=== PATIENT | male | born 1970 | race Caucasian/White ===

== ENCOUNTER 2025-04-09 08:32 | Inpatient (IN) | payer OTHER ==
[~2025-04-09] VITALS: Ht 180.3 cm; Wt 82.1 kg
[2025-04-09 09:13] VITALS: PULSE 51; RESP 18; O2SAT 98
--- NOTE | 2025-04-09 09:13 | ED.PDOC ---
HPI Comments 54 y.o male with PMHx of Left bunch branch block and HTN, presents to the ED for a chief complaint chest pain associated with lightheadedness that started yesterday around 1700. Patient describes pain as sharp, localized to the mid center of his chest that is non radiating and is constant. Patient states pain appeared while getting out of work, assumed it was excessive gas built up and went to bed. Patient then woke up around 5am today to workout and noticed pain was still active with increased lightheadedness. He denies any SOB, nausea, vomiting, fever, chills. Chief Complaint: Chest Pain Time Seen by MD: 08:40 Reviewed Notes: Nurses Notes, Medications, Allergies Allergies: Coded Allergies: NO KNOWN ALLERGIES (Unverified , 04/09/25) Information Source: Patient Mode of Arrival: Ambulatory Severity: Moderate Timing: Days (1) Duration: Since onset Location: Substernal Radiation: No Radiation Quality: Sharp Onset: At Rest Cardiac Risk Factors: HTN PE Risk Factors: None History of: None Modifying Factors: Nothing Associated Signs and Symptoms: Other (lightheadedness ) Past Medical History PAST MEDICAL HISTORY: HTN Past Medical History (Other): LBBB Surgical History: Denies all surgeries Family History Family History: Reviewed,noncontributory to illness, No family hx of Cancer, No family hx of DM, No family hx of Heart cecy, No family hx of HTN, No family hx ofKidney cecy, No family hx of Liver cecy, No family hx of Lung cecy, No family hx of Stroke Social History Smoker: Non-Smoker Alcohol: Denies ETOH Use Drugs: Denies Drug Use Lives In: Home Constitutional: denies: chills, diaphoresis, fatigue, fever, malaise, sweats, weakness, others EENTM: denies: blurred vision, double vision, ear bleeding, ear discharge, ear drainage, ear pain, ear ringing, eye pain, eye redness, hearing loss, mouth pain, mouth swelling, nasal discharge, nose bleeding, nose congestion, nose pain, photophobia, tearing, throat pain, throat swelling, voice changes, others Respiratory: denies: cough, hemoptysis, orthopnea, SOB at rest, shortness of breath, SOB with excertion, stridor, wheezing, others Cardiovascular: reports: chest pain, lightheadedness; denies: dizzy spells, diaphoresis, Dyspnea on exertion, edema, irregular heart beat, left arm pain, palpitations, PND, syncope, others Gastrointestinal: denies: abdomen distended, abdominal pain, blood streaked bowels, constipated, diarrhea, dysphagia, difficulty swallowing, hematemesis, melena, nausea, poor appetite, poor fluid intake, rectal bleeding, rectal pain, vomiting, others Genitourinary: denies: burning, dysuria, flank pain, frequency, hematuria, incontinence, penile discharge, penile sore, pain, testicle pain, testicle swelling, urgency, others Neurological: denies: dizziness, fainting, headache, left sided numbness, left sided weakness, numbness, paresthesia, pre-existing deficit, right sided numbness, right sided weakness, seizure, speech problems, tingling, tremors, weakness, others Musculoskeletal: denies: back pain, gout, joint pain, joint swelling, muscle pain, muscle stiffness, neck pain, others Integumetry: denies: bruises, change in color, change in hair/nails, dryness, laceration, lesions, lumps, rash, wounds, others Allergic/Immunocompromised: denies: Difficulty Healing, Frequent Infections, Hives, Itching, others Hematologic/Lymphatic: denies: anemia, blood clots, easy bleeding, easy bruising, swollen glands, others Endocrine: denies: excessive hunger, excessive sweating, excessive thirst, excessive urination, flushing, intolerance to cold, intolerance to heat, unexplained weight gain, unexplained weight loss, others Psychiatric: denies: anxiety, bipolar disorder, depression, hopeless, panic disorder, schizophrenia, sleepless, suicidal, others All Other Systems: Reviewed and Negative Physical Exam General Appearance: Moderate Distress HEENT: Normal ENT Inspection, Pharynx Normal, TMs Normal Neck: Full Range of Motion, Non-Tender, Normal, Normal Inspection Respiratory: Chest Non-Tender, Lungs Clear, No Accessory Muscle Use, No Respir atory Distress, Normal Breath Sounds Cardiovascular: Bradycardia Breast Exam: Deferred Gastrointestinal: No Organomegaly, Non Tender, No Pulsatile Mass, Normal Bowel Sounds, Soft Genitalia: Deferred Pelvic: Deferred Rectal: Deferred Extremities: No calf tenderness, Normal capillary refill, Normal inspection, Normal range of motion, Non-tender, No pedal edema Musculoskeletal : Apperance: Normal Neurologic: Alert, c programmer II-XII nml as Tested, No Motor Deficits, Normal Affect, Normal Mood, No Sensory Deficits Cerebellar Function: Normal Reflexes: Normal Skin: Dry, Normal Color, Warm Peripheral Pulses: 3+ Radial (R), 3+ Radial (L) Lymphatic: No Adenopathy EKG EKG : Pulse Rate (adult): 50 Cardiac Rhythm: SB Block: LBBB Was a procedure done? Was a procedure done?: No CP Differential Dx Differential Diagnosis: A-fib, A-Flutter, Angina, Anxiety / Panic Attack, Atrial Dysrhythmia, Electrolyte Disorder Differential Diagnosis: Angina, Chest Wall Pain, Cholelithiasis, Costochondritis, Myocardial Infarction, Pericarditis X-Ray, Labs, Meds, VS Vital Signs Date Time Temp Pulse Resp B/P (MAP) Pulse Ox O2 Delivery O2 Flow Rate FiO2 04/09/25 12:58 55 17 117/72 (87) 100 04/09/25 11:32 48 04/09/25 11:00 54 18 121/72 (88) 100 04/09/25 11:00 121/72 04/09/25 09:46 45 04/09/25 09:24 131/80 04/09/25 09:13 51 18 98 Room Air* 0 21 04/09/25 09:13 98.2 51 18 131/80 (97) 97 98.2 04/09/25 09:13 50 04/09/25 08:38 97.9 56 18 142/83 100 97.9 04/09/25 08:36 50 Lab Test 04/09/25 12:12 04/09/25 10:26 04/09/25 09:46 04/09/25 09:26 Range/Units Troponin I High Sensitivity 32 34 35 </=54 ng/L Urine Color Yellow Yellow Urine Clarity Clear Clear Urine pH 6.5 5.0-9.0 Urine Specific [place] 1.021 1.001-1.035 Urine Protein Negative Negative Urine Ketones Negative Negative Urine Blood Negative Negative /uL Urine Nitrite Negative Negative Urine Bilirubin Negative Negative Urine Urobilinogen Normal Negative mg/dL Urine Leukocyte Esterase Negative Negative /uL Urine RBC <1 0 - 3 /hpf Urine Microscopic WBC 1 0-3 /HPF Urine Squamous Epithelial Cells None seen <5 /hpf Urine Bacteria None seen None Seen /hpf Urine Glucose Normal Normal mg/dL White Blood Count 8.1 4.4-10.8 10^3/uL Red Blood Count 4.93 4.5-5.90 10^6/uL Hemoglobin 15.9 13.5-17.5 g/dL Hematocrit 46.1 41.0-53.0 % Mean Corpuscular Volume 93.5 80.0-100.0 fL Mean Corpuscular Hemoglobin 32.2 H 28.0-32.0 pg Mean Corpuscular Hemoglobin Concent 34.5 32.0-36.0 g/dL Red Cell Distribution Width 13.4 11.8-14.3 % Platelet Count 197 140-450 10^3/uL Mean Platelet Volume 7.9 6.9-10.8 fL Neutrophils (%) (Auto) 64.4 37.0-80.0 % Lymphocytes (%) (Auto) 23.3 10.0-50.0 % Monocytes (%) (Auto) 10.4 0.0-12.0 % Eosinophils (%) (Auto) 1.3 0.0-7.0 % Basophils (%) (Auto) 0.6 0.0-2.0 % Neutrophils # (Auto) 5.2 1.6-8.6 10 ^3/uL Lymphocytes # (Auto) 1.9 0.4-5.4 10 ^3/uL Monocytes # (Auto) 0.8 0-1.3 10 ^3/uL Eosinophils # (Auto) 0.1 0-0.8 10 ^3/uL Basophils # (Auto) 0 0-0.2 10 ^3/uL Nucleated Red Blood Cells 0.0 % Sodium Level 142 136-145 mmol/L Potassium Level 4.8 3.5-5.1 mmol/L Chloride Level 104 98-107 mmol/L Carbon Dioxide Level 30 20-31 mmol/L Anion Gap 8 5-15 Blood Urea Nitrogen 11 9-23 mg/dL Creatinine 1.15 0.700-1.30 mg/dL Glomerular Filtration Rate Calc 76 >90 mL/min BUN/Creatinine Ratio 9.6 L 10.0-20.0 Serum Glucose 96 74-106 mg/dL Calcium Level 9.3 8.7-10.4 mg/dL Total Bilirubin 0.7 0.2-1.0 mg/dL Aspartate Amino Transferase (AST) 26 13-40 U/L Alanine Aminotransferase (ALT) 33 7-40 U/L Alkaline Phosphatase 67 46-116 U/L Total Protein 6.3 5.7-8.2 g/dL Albumin 4.0 3.2-4.8 g/dL Current Medications Medications (Trade) Dose Ordered Sig/Cedrick Route Start Time Stop Time Status Last Admin Nitroglycerin (Ntrostat Sublingual) 0.4 mg ONCE ONCE SL 04/09/25 09:15 04/09/25 09:16 DC 04/09/25 09:24 Aspirin 325 mg ONCE ONCE PO 04/09/25 09:15 04/09/25 09:16 DC 04/09/25 09:25 AP portable chest CLINICAL INDICATION: sob FINDINGS: Heart size slightly prominent with a left ventricular configuration. The aorta is tortuous. No infiltrates or effusions. IMPRESSION: 1. No acute cardiopulmonary pathology Patient alert. Complaining of chest pain. EKG does show bradycardia with left bundle branch block. Cardiac marker within normal limits. Vitals stable. Spoke with Cardiology. Was given aspirin. Was given nitro. WBC within normal limits. Hemoglobin within normal limits. Chest x-ray reviewed does not show any acute process. Explained to the patient. Continue to monitor. Time of 1ST Reevaluation: 09:09 Reevaluation 1ST: Unchanged Patient Education/Counseling: Diagnosis, Treatment, Prognosis Family Education/Counseling: No Family Present SEPSIS Sepsis Screen Date sepsis recognized/suspect: Apr 09, 2025 Time Sepsis recognized/suspect: 837 Recent Procedure: No On Antibiotic Therapy: No Respiratory Rate >20: No Heart Rate >90: No Temp<36 C (96.8 F) or >38.3 C: No SBP <90 or MAP <65 mmHG: No New Acute Mental Status Change: No Is the patient on CPAP, BIPAP,: No Physician Orders Electrocardigram (04/09/25 11:52) Chest Portable (04/09/25 09:08) Vital Signs Date Time Temp Pulse Resp B/P (MAP) Pulse Ox O2 Delivery O2 Flow Rate FiO2 04/09/25 12:58 55 17 117/72 (87) 100 04/09/25 11:32 48 04/09/25 11:00 54 18 121/72 (88) 100 04/09/25 11:00 121/72 04/09/25 09:46 45 04/09/25 09:24 131/80 04/09/25 09:13 51 18 98 Room Air* 0 21 04/09/25 09:13 98.2 51 18 131/80 (97) 97 98.2 04/09/25 09:13 50 04/09/25 08:38 97.9 56 18 142/83 100 97.9 04/09/25 08:36 50 Laboratory Tests Test 04/09/25 09:26 White Blood Count 8.1 10^3/uL (4.4-10.8) Medications Medications Dose Ordered Sig/Cedrick Route Start Time Stop Time Status Last Admin Dose Admin Aspirin 325 mg ONCE ONCE PO 04/09/25 09:15 04/09/25 09:16 DC 04/09/25 09:25 Nitroglycerin 0.4 mg ONCE ONCE SL 04/09/25 09:15 04/09/25 09:16 DC 04/09/25 09:24 Departure 1 Departure Time of Disposition: 10:21 Impression: Primary Impression: Chest pain of unknown etiology Additional Impressions: Left bundle branch block Bradycardia Disposition: ADMITTED INPATIENT Admit to: Med Surg Condition: Guarded Critical Care Note Critical Care Time?: Yes (90 min-critical care time only) Stability Stability form required: No Heart Score Heart Score: Heart Score Response (Comments) Value History Highly Suspicious 2 EKG Normal 0 Age 45-64 1 Risk Factors >3 or Hx ASHD 2 Troponin Normal limit 0 Total 5 I personally scribed for ARIC GARCIA MD ([email or web address]) on 04/09/25 at 09:13. Electronically submitted by Rani Ardon ([facility]). I personally scribed for ARIC GARCIA MD ([email or web address]) on 04/09/25 at 10:00. Electronically submitted by Rani Ardon ([facility]). ARIC GARCIA MD Apr 09, 2025 09:13
[2025-04-09] MEDS: NITROGLYCERIN 0.4 MG SL TAB SL ONE (09:24)
[2025-04-09 09:38] LABS: Hematocrit 46.1 % (41.0-53.0); Hemoglobin 15.9 g/dL (13.5-17.5); Mean Corpuscular Hemoglobin 32.2 pg (28.0-32.0); Mean Corpuscular Volume 93.5 fL (80.0-100.0); Nucleated Red Blood Cells % 0.0 %
--- NOTE | 2025-04-09 09:39 | DVH ---
AP portable chest CLINICAL INDICATION: sob FINDINGS: Heart size slightly prominent with a left ventricular configuration. The aorta is tortuous . No infiltrates or effusions. IMPRESSION: 1. No acute cardiopulmonary pathology
--- NOTE | 2025-04-09 09:50 | ECG ---
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
[2025-04-09 09:55] LABS: Alanine Aminotransferase 33 U/L (7-40); Albumin 4.0 g/dL (3.2-4.8); Alkaline Phosphatase 67 U/L (46-116); Anion Gap 8 (5-15); BUN/Creatinine Ratio 9.6 (10.0-20.0); Bilirubin, Total 0.7 mg/dL (0.2-1.0); Blood Urea Nitrogen 11 mg/dL (9-23); Calcium 9.3 mg/dL (8.7-10.4); Carbon Dioxide 30 mmol/L (20-31); Chloride 104 mmol/L (98-107); Glucose 96 mg/dL (74-106); Potassium 4.8 mmol/L (3.5-5.1); Sodium 142 mmol/L (136-145); Total Protein 6.3 g/dL (5.7-8.2)
[2025-04-09 10:10] LABS: Urine Protein, UAD Negative (Negative)
--- NOTE | 2025-04-09 10:47 | ECG ---
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
[2025-04-09] MEDS ORDERED: HYDROcodone-ACET 5/325MG TAB PO PRN (13:30)
[2025-04-09] MEDS ORDERED: ACETAMINOPHEN 325 MG TAB PO PRN (13:30)
[2025-04-09] MEDS ORDERED: MORPHINE SULFATE INJ 2 MG/ml SYRG IV PRN (13:30)
[2025-04-09] MEDS ORDERED: ONDANSETRON HCL 4 MG/2 ML VIAL IV PRN (13:30)
[2025-04-09] MEDS ORDERED: NITROGLYCERIN 0.4 MG SL TAB SL PRN (13:30)
--- NOTE | 2025-04-09 13:38 | DVHHP2 ---
History of Present Illness History of Present Illness 54 y.o male with PMHx of Left bunch branch block and HTN, presents to the ED for a chief complaint chest pain associated with lightheadedness that started yesterday around 1700. Patient describes pain as sharp, localized to the mid center of his chest that is non radiating and is constant. Patient states pain appeared while getting out of work, assumed it was excessive gas built up and went to bed. Patient then woke up around 5am today to workout and noticed pain was still active with increased lightheadedness. He denies any SOB, nausea, vomiting, fever, chills. Patient is from [place], vitamin expiratory, very healthy, nonsmoker, no family history cardiac,, eat healthy, stays active, does rowing challenges which can take up to 1 month. 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 He has had some cardiac workup from home state [place] which was negative, 1 year ago. Review of Systems Constitutional: Yes: Chills; No: Fever, Sweats, Weakness, Malaise, Other Cardiovascular: Chest Pain, Lt Headedness Gastrointestinal: No: Nausea, Vomiting, Abdominal Pain, Diarrhea, Constipation, Melena, Hematochezia, Other Genitourinary: No Dysuria, No Frequency, No Incontinence, No Hematuria, No Retention, No Other Neurological: No: Weakness, Numbness, Incoordination, Change in speech, Confusion, Seizures, Other Allergies: Coded Allergies: NO KNOWN ALLERGIES (Unverified , 04/09/25) Exam Vital Signs Vital Signs Date Time Temp Pulse Resp B/P (MAP) Pulse Ox O2 Delivery O2 Flow Rate FiO2 04/09/25 12:58 55 17 117/72 (87) 100 04/09/25 09:13 Room Air* 0 21 04/09/25 09:13 98.2 98.2 Exam GEN: Healthy appearing, well-developed, NAD. HEENT: NC/AT; MMM. CV: RRR, no m/r/g. Bradycardia LUNGS: CTAB, no w/r/c. ABD: Soft, NT/ND, NBS, no masses or organomegaly. EXT: skin Warm, well perfused. no rashes. No clubbing, cyanosis, or edema. NEURO: Ambulating with no limitations. No focal deficits. Labs/Xrays Labs Test 04/09/25 12:12 04/09/25 09:46 04/09/25 09:26 Range/Units Troponin I High Sensitivity 32 </=54 ng/L Urine Color Yellow Yellow Urine Clarity Clear Clear Urine pH 6.5 5.0-9.0 Urine Specific [place] 1.021 1.001-1.035 Urine Protein Negative Negative Urine Ketones Negative Negative Urine Blood Negative Negative /uL Urine Nitrite Negative Negative Urine Bilirubin Negative Negative Urine Urobilinogen Normal Negative mg/dL Urine Leukocyte Esterase Negative Negative /uL Urine RBC <1 0 - 3 /hpf Urine Microscopic WBC 1 0-3 /HPF Urine Squamous Epithelial Cells None seen <5 /hpf Urine Bacteria None seen None Seen /hpf Urine Glucose Normal Normal mg/dL White Blood Count 8.1 4.4-10.8 10^3/uL Red Blood Count 4.93 4.5-5.90 10^6/uL Hemoglobin 15.9 13.5-17.5 g/dL Hematocrit 46.1 41.0-53.0 % Mean Corpuscular Volume 93.5 80.0-100.0 fL Mean Corpuscular Hemoglobin 32.2 H 28.0-32.0 pg Mean Corpuscular Hemoglobin Concent 34.5 32.0-36.0 g/dL Red Cell Distribution Width 13.4 11.8-14.3 % Platelet Count 197 140-450 10^3/uL Mean Platelet Volume 7.9 6.9-10.8 fL Neutrophils (%) (Auto) 64.4 37.0-80.0 % Lymphocytes (%) (Auto) 23.3 10.0-50.0 % Monocytes (%) (Auto) 10.4 0.0-12.0 % Eosinophils (%) (Auto) 1.3 0.0-7.0 % Basophils (%) (Auto) 0.6 0.0-2.0 % Neutrophils # (Auto) 5.2 1.6-8.6 10 ^3/uL Lymphocytes # (Auto) 1.9 0.4-5.4 10 ^3/uL Monocytes # (Auto) 0.8 0-1.3 10 ^3/uL Eosinophils # (Auto) 0.1 0-0.8 10 ^3/uL Basophils # (Auto) 0 0-0.2 10 ^3/uL Nucleated Red Blood Cells 0.0 % Sodium Level 142 136-145 mmol/L Potassium Level 4.8 3.5-5.1 mmol/L Chloride Level 104 98-107 mmol/L Carbon Dioxide Level 30 20-31 mmol/L Anion Gap 8 5-15 Blood Urea Nitrogen 11 9-23 mg/dL Creatinine 1.15 0.700-1.30 mg/dL Glomerular Filtration Rate Calc 76 >90 mL/min BUN/Creatinine Ratio 9.6 L 10.0-20.0 Serum Glucose 96 74-106 mg/dL Calcium Level 9.3 8.7-10.4 mg/dL Total Bilirubin 0.7 0.2-1.0 mg/dL Aspartate Amino Transferase (AST) 26 13-40 U/L Alanine Aminotransferase (ALT) 33 7-40 U/L Alkaline Phosphatase 67 46-116 U/L Total Protein 6.3 5.7-8.2 g/dL Albumin 4.0 3.2-4.8 g/dL SEPSIS Sepsis Screen Date sepsis recognized/suspect: Apr 09, 2025 Time Sepsis recognized/suspect: 837 Recent Procedure: No On Antibiotic Therapy: No Respiratory Rate >20: No Heart Rate >90: No Temp<36 C (96.8 F) or >38.3 C: No SBP <90 or MAP <65 mmHG: No New Acute Mental Status Change: No Is the patient on CPAP, BIPAP,: No Physician Orders Electrocardigram (04/09/25 11:52) Chest Portable (04/09/25 09:08) Vital Signs Date Time Temp Pulse Resp B/P (MAP) Pulse Ox O2 Delivery O2 Flow Rate FiO2 04/09/25 12:58 55 17 117/72 (87) 100 04/09/25 11:32 48 04/09/25 11:00 54 18 121/72 (88) 100 04/09/25 09:46 45 04/09/25 09:24 131/80 04/09/25 09:13 51 18 98 Room Air* 0 21 04/09/25 09:13 98.2 51 18 131/80 (97) 97 98.2 04/09/25 09:13 50 04/09/25 08:38 97.9 56 18 142/83 100 97.9 04/09/25 08:36 50 Laboratory Tests Test 04/09/25 09:26 White Blood Count 8.1 10^3/uL (4.4-10.8) Medications Medications Dose Ordered Sig/Cedrick Route Start Time Stop Time Status Last Admin Dose Admin Aspirin 325 mg ONCE ONCE PO 04/09/25 09:15 04/09/25 09:16 DC 04/09/25 09:25 325 MG Nitroglycerin 0.4 mg ONCE ONCE SL 04/09/25 09:15 04/09/25 09:16 DC 04/09/25 09:24 0.4 MG Assessment/Plan Assessment/Plan 04/09: Very healthy, vitamin, expiratory, eats healthy, no family history cardia, had acute onset chest pain which continued to today, 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 Pressure described as pressure like substernal, no tenderness to palpation not reproducible. Troponins negative, EKG at baseline with left bundle branch block, concern for unstable angina. Gastritis is possible, but 1st we will try baclofen Diagnosis: Unstable angina Chest pain, ACS ruled out Hypotension, left bundle-branch block Asymptomatic bradycardia Plan: Continue home meds, losartan 12, hold, blood pressure adequate atenolol 25, hold Start aspirin 81 Tele Baclofen 10 b.i.d. Cardiac diet Echocardiogram Tele Full code Plan discussed with: Patient Date of Service: Apr 09, 2025 Billing Provider: RAFAEL MENDOZA MD Common Visit Codes: 51859-BRL/OBS DISCH DAY >30min Secondary Visit Codes: [id number] CARE PLAN 30 MINUTES RAFAEL MENDOZA MD Apr 09, 2025 13:38
[2025-04-09] MEDS: BACLOFEN 10 MG TAB PO SCH (14:24)
[2025-04-09 15:24] VITALS: PULSE 56; RESP 17; O2SAT 96
[2025-04-09 15:26] VITALS: BP 124/77; PULSE 56; RESP 18; TEMP 98.1; O2SAT 99
[2025-04-09 17:00] VITALS: BP 120/70; PULSE 60; RESP 18; TEMP 97.2; O2SAT 97
[2025-04-09 20:00] VITALS: PULSE 63; O2SAT 98
[2025-04-09 21:00] VITALS: BP 116/63; PULSE 67; RESP 18; TEMP 97.9; O2SAT 97
[2025-04-10] VITALS (8 sets, daily range): BP systolic 111–140; BP diastolic 60–87; PULSE 54–69; RESP 14–18; TEMP 97.4–98; O2SAT 95–97
[2025-04-10 06:24] LABS: Hematocrit 46.3 % (41.0-53.0); Hemoglobin 16.1 g/dL (13.5-17.5); Mean Corpuscular Hemoglobin 32.5 pg (28.0-32.0); Mean Corpuscular Volume 93.7 fL (80.0-100.0); Nucleated Red Blood Cells % 0.3 %
[2025-04-10 06:38] LABS: Alanine Aminotransferase 32 U/L (7-40); Albumin 3.7 g/dL (3.2-4.8); Alkaline Phosphatase 65 U/L (46-116); Anion Gap 10 (5-15); BUN/Creatinine Ratio 9.7 (10.0-20.0); Bilirubin, Total 0.8 mg/dL (0.2-1.0); Blood Urea Nitrogen 11 mg/dL (9-23); Calcium 9.1 mg/dL (8.7-10.4); Carbon Dioxide 27 mmol/L (20-31); Chloride 104 mmol/L (98-107); Glucose 98 mg/dL (74-106); Potassium 4.2 mmol/L (3.5-5.1); Sodium 141 mmol/L (136-145); Total Protein 6.0 g/dL (5.7-8.2)
--- NOTE | 2025-04-10 09:39 | DVHPN2 ---
Subjective Patient is seen at bedside today, doing well Reviewed: H&P Changes from previous H/P or p: No Changes General: Per HPI Cardiovascular: Chest Pain, Lt Headedness Gastrointestinal: No Nausea, No Vomiting, No Abdominal Pain, No Diarrhea, No Constipation, No Melena, No Hematochezia, No Other Genitourinary: No Dysuria, No Frequency, No Incontinence, No Hematuria, No Retention, No Other Objective Vitals Vital Signs Date Time Temp Pulse Resp B/P (MAP) Pulse Ox O2 Delivery O2 Flow Rate FiO2 04/10/25 09:12 97.4 62 14 137/81 (99) 97 97.4 04/09/25 20:00 Room Air* 0 21 Intake/Output Intake and Output 04/10/25 07:00 Intake Total 1516 ml Balance 1516 ml Intake Oral 1516 ml # Voids 8 Exam GEN: Healthy appearing, well-developed, NAD. HEENT: NC/AT; MMM. CV: RRR, no m/r/g. LUNGS: CTAB, no w/r/c. ABD: Soft, NT/ND, NBS, no masses or organomegaly. EXT: skin Warm, well perfused. no rashes. No clubbing, cyanosis, or edema. NEURO: Ambulating with no limitations. No focal deficits. Medications Current Medications Medications Dose Ordered Sig/Cedrick Route Start Time Stop Time Status Last Admin Dose Admin Acetaminophen/ Hydrocodone Bitart 1 tab Q4HP PRN PO 04/09/25 13:30 Ondansetron HCl 4 mg Q4HP PRN IV 04/09/25 13:30 Acetaminophen 650 mg Q6HP PRN PO 04/09/25 13:30 Nitroglycerin 0.4 mg Q5MINP PRN SL 04/09/25 13:30 Morphine Sulfate 2 mg Q30M PRN IV 04/09/25 13:30 Baclofen 10 mg BID PO 04/09/25 13:30 04/10/25 09:18 10 MG Aspirin 81 mg DAILY PO 04/10/25 10:00 04/10/25 09:19 81 MG Laboratory Results Laboratory Tests 04/10/25 05:01 Chemistry Test 04/10/25 05:01 Albumin 3.7 g/dL (3.2-4.8) Calcium Level 9.1 mg/dL (8.7-10.4) Total Protein 6.0 g/dL (5.7-8.2) LFT Test 04/10/25 05:01 Alanine Aminotransferase (ALT) 32 U/L (7-40) Alkaline Phosphatase 65 U/L (46-116) Aspartate Amino Transferase (AST) 23 U/L (13-40) Total Bilirubin 0.8 mg/dL (0.2-1.0) Urinalysis Test 04/09/25 09:46 Urine Color Yellow (Yellow) Urine Clarity Clear (Clear) Urine pH 6.5 (5.0-9.0) Urine Specific [place] 1.021 (1.001-1.035) Urine Protein Negative (Negative) Urine Ketones Negative (Negative) Urine Blood Negative /uL (Negative) Urine Nitrite Negative (Negative) Urine Bilirubin Negative (Negative) Urine Urobilinogen Normal mg/dL (Negative) Urine Leukocyte Esterase Negative /uL (Negative) Urine RBC <1 /hpf (0 - 3) Urine Microscopic WBC 1 /HPF (0-3) Urine Squamous Epithelial Cells None seen /hpf (<5) Urine Bacteria None seen /hpf (None Seen) Urine Glucose Normal mg/dL (Normal) Labs and/or images reviewed: Labs reviewed by me, Image(s) reviewed by me Assessment/Plan Assessment/Plan 04/09: Very healthy, vitamin, expiratory, eats healthy, no family history cardia, had acute onset chest pain which continued to today, 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 Pressure described as pressure like substernal, no tenderness to palpation not reproducible. Troponins negative, EKG at baseline with left bundle branch block, concern for unstable angina. Gastritis is possible, but 1st we will try baclofen 04/10: Patient chest pain is improving he does feel that the pain is more localized to left pectoralis major muscle. Tele without concern baseline bradycardia asymptomatic. Echocardiogram today. Patient asking if he can leave today. We will have to wait for echocardiogram read. Otherwise keep patient on telemetry. No blood pressure required to maintain at goal blood pressure. Diagnosis: Unstable angina Chest pain, ACS ruled out Hypotension, left bundle-branch block Asymptomatic bradycardia Plan: Continue home meds, losartan 12, hold, blood pressure adequate atenolol 25, hold Start aspirin 81 Tele Baclofen 10 b.i.d. Cardiac diet Echocardiogram Tele Full code Plan discussed with: Patient My Orders Orders - RAFAEL MENDOZA MD Procedure Category Date Status Time Admit ADMIT 04/09/25 Transmitted 13:26 Code Status CODE 04/09/25 Transmitted 13:26 Hydrocodone-Acet PHA 04/09/25 In Process 5/325mg Tab ([place] 13:30 Ondansetron Hcl PHA 04/09/25 In Process (Zofran) 13:30 Cardiac DIET 04/09/25 Transmitted Diet-2gna,Lofat,Lochol Lunch Acetaminophen Tablet PHA 04/09/25 In Process (Tylenol Tablet) 13:30 Nitroglycerin PHA 04/09/25 In Process Sublingual (Ntrostat 13:30 Morphine Sulfate PHA 04/09/25 In Process Injection 13:30 Stat Ekg For Chest JEET 04/09/25 In Process Pain 13:26 Notify Md Of Changes JEET 04/09/25 In Process From Base 13:26 Machine Milker For JEET 04/09/25 In Process 24 Hours 13:26 Emergency Dysrhythmia [facility] 04/09/25 In Process Protocol 13:26 Rhythm Strips Once JEET 04/09/25 In Process Every Shift 13:26 Oxygen By Nasal RT 04/09/25 Transmitted Cannula 13:26 Baclofen Tablet PHA 04/09/25 In Process (Liorisal Tablet) 13:30 Aspirin Tablet PHA 04/10/25 In Process 10:00 Echo 2d Mode Cardiac US 04/10/25 Logged DOP 13:26 Date of Service: Apr 10, 2025 Billing Provider: RAFAEL MENDOZA MD Common Visit Codes: [id number] INP/OBS CARE(HIGH) RAFAEL MENDOZA MD Apr 10, 2025 09:39
--- NOTE | 2025-04-10 16:42 | DVHSR ---
APPROVED REPORT EXAM: Two-dimensional and M-mode echocardiogram with Doppler and color Doppler. Blood Pressure: 124/79 mmHg INDICATION Chest Pain Unstable angina rule out RISK FACTORS Height: 70, Weight: 176 DIMENSIONS LVDd5.0 (3.8-5.7cm)LA (2D)3.8 (1.9-4.0cm)Aortic Root3.4 (2.0-3.7cm) LVDs3.2 (2.5-4.0cm)LA (MM) (1.9-4.0cm)Aortic Cusp Exc1.8 (1.5-2.0cm) EF (%) 65.0 (55-70%)Rt. Atrium4.5 (1.9-4.0cm)Asc. Aorta cm IVSd1.0 (0.7-1.1cm)RV (D) (1.8-2.4cm) PWd1.1 (0.7-1.1cm) Mitral Valve MitralMitral Stenosis E wave0.60m/sMV Mean GR.mmHg A wave0.56m/sMV Peak GR.31mmHg E/A ratio1.12D MVAcm2 DECEL [id number] 1/2 [id number] IVRTmsDop MVA2.17cm2 Aortic Valve Aortic ValveAortic Stenosis V11.19m/Tony Mean GR.5mmHg V21.48m/Tony Peak GR.9mmHg LVOT Diameter2.2 (1.8-2.4cm)Doppler AVA3.05cm2 Pulmonic Valve V21.44m/s Conclusion Sinus rhythm. Left atrial enlargement. Valves are normal. EF of 60% with normal RV function. Dopplers unremarkable. No pericardial effusion masses or vegetations noted.
[2025-04-11 01:00] VITALS: BP 120/70; PULSE 60; RESP 15; TEMP 97.4; O2SAT 96
[2025-04-11 05:00] VITALS: BP 122/66; PULSE 53; RESP 15; TEMP 97.4; O2SAT 96
[2025-04-11 08:00] VITALS: PULSE 62; RESP 17; O2SAT 99
[2025-04-11 08:35] VITALS: BP 130/84; PULSE 70; RESP 17; TEMP 97.7; O2SAT 99
[2025-04-11] MEDS ORDERED: BACL10TA PO (09:35)
[2025-04-11] MEDS ORDERED: ASPI1TAB19 PO (09:35)
--- NOTE | 2025-04-11 09:39 | DVHDS2 ---
Discharge Summary Date of Admission Apr 09, 2025 at 13:26 Date of Discharge: Apr 11, 2025 Labs/Diagnostic Data: Laboratory Results Test 04/10/25 05:01 04/09/25 12:12 04/09/25 09:46 White Blood Count 8.8 10^3/uL (4.4-10.8) Red Blood Count 4.94 10^6/uL (4.5-5.90) Hemoglobin 16.1 g/dL (13.5-17.5) Hematocrit 46.3 % (41.0-53.0) Mean Corpuscular Volume 93.7 fL (80.0-100.0) Mean Corpuscular Hemoglobin 32.5 pg (28.0-32.0) Mean Corpuscular Hemoglobin Concent 34.7 g/dL (32.0-36.0) Red Cell Distribution Width 13.4 % (11.8-14.3) Platelet Count 183 10^3/uL (140-450) Mean Platelet Volume 8.5 fL (6.9-10.8) Neutrophils (%) (Auto) 60.8 % (37.0-80.0) Lymphocytes (%) (Auto) 27.6 % (10.0-50.0) Monocytes (%) (Auto) 9.1 % (0.0-12.0) Eosinophils (%) (Auto) 1.9 % (0.0-7.0) Basophils (%) (Auto) 0.6 % (0.0-2.0) Neutrophils # (Auto) 5.4 10 ^3/uL (1.6-8.6) Lymphocytes # (Auto) 2.4 10 ^3/uL (0.4-5.4) Monocytes # (Auto) 0.8 10 ^3/uL (0-1.3) Eosinophils # (Auto) 0.2 10 ^3/uL (0-0.8) Basophils # (Auto) 0.1 10 ^3/uL (0-0.2) Nucleated Red Blood Cells 0.3 % Sodium Level 141 mmol/L (136-145) Potassium Level 4.2 mmol/L (3.5-5.1) Chloride Level 104 mmol/L (98-107) Carbon Dioxide Level 27 mmol/L (20-31) Anion Gap 10 (5-15) Blood Urea Nitrogen 11 mg/dL (9-23) Creatinine 1.13 mg/dL (0.700-1.30) Glomerular Filtration Rate Calc 77 mL/min (>90) BUN/Creatinine Ratio 9.7 (10.0-20.0) Serum Glucose 98 mg/dL (74-106) Calcium Level 9.1 mg/dL (8.7-10.4) Total Bilirubin 0.8 mg/dL (0.2-1.0) Aspartate Amino Transferase (AST) 23 U/L (13-40) Alanine Aminotransferase (ALT) 32 U/L (7-40) Alkaline Phosphatase 65 U/L (46-116) Total Protein 6.0 g/dL (5.7-8.2) Albumin 3.7 g/dL (3.2-4.8) Troponin I High Sensitivity 32 ng/L (</=54) Urine Color Yellow (Yellow) Urine Clarity Clear (Clear) Urine pH 6.5 (5.0-9.0) Urine Specific [place] 1.021 (1.001-1.035) Urine Protein Negative (Negative) Urine Ketones Negative (Negative) Urine Blood Negative /uL (Negative) Urine Nitrite Negative (Negative) Urine Bilirubin Negative (Negative) Urine Urobilinogen Normal mg/dL (Negative) Urine Leukocyte Esterase Negative /uL (Negative) Urine RBC <1 /hpf (0 - 3) Urine Microscopic WBC 1 /HPF (0-3) Urine Squamous Epithelial Cells None seen /hpf (<5) Urine Bacteria None seen /hpf (None Seen) Urine Glucose Normal mg/dL (Normal) Other Laboratory Tests 04/10/25 05:01 Brief Hx & Hospital Course: 54 y.o male with PMHx of Left bunch branch block and HTN, presents to the ED for a chief complaint chest pain associated with lightheadedness that started yesterday around 1700. Patient describes pain as sharp, localized to the mid center of his chest that is non radiating and is constant. Patient states pain appeared while getting out of work, assumed it was excessive gas built up and went to bed. Patient then woke up around 5am today to workout and noticed pain was still active with increased lightheadedness. He denies any SOB, nausea, vomiting, fever, chills. Patient is from [place], vitamin expiratory, very healthy, nonsmoker, no family history cardiac,, eat healthy, stays active, does rowing challenges which can take up to 1 month. 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 He has had some cardiac workup from home state [place] which was negative, 1 year ago. 04/09: Very healthy, vitamin, expiratory, eats healthy, no family history cardia, had acute onset chest pain which continued to today, he is doing training with [employer] here,. Pressure described as pressure like substernal, no tenderness to palpation not reproducible. Troponins negative, EKG at baseline with left bundle branch block, concern for unstable angina. Gastritis is possible, but 1st we will try baclofen 04/10: Patient chest pain is improving he does feel that the pain is more localized to left pectoralis major muscle. Tele without concern baseline bradycardia asymptomatic. Echocardiogram today. Patient asking if he can leave today. We will have to wait for echocardiogram read. Otherwise keep patient on telemetry. No blood pressure required to maintain at goal blood pressure. 04/11: Echocardiogram benign, tele unconcerning, chest pain resolving stable for discharge as per plan below diagnosis: Chest pain, ACS ruled out, costochondritis likely Unstable angina , ruled out Hypotension, left bundle-branch block Asymptomatic bradycardia Plan: Take aspirin 81 daily for 30 days, reassess his PCP Take baclofen 10 mg twice daily for 7 days, extra tablets can be taken as needed maximum up to 3 times daily. 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 Follow up primary PCP Condition at Discharge: Fair Final Diagnosis/Problems List Chest pain, ACS ruled out, costochondritis likely Unstable angina , ruled out Hypotension, left bundle-branch block Asymptomatic bradycardia Discharge Disposition: Home Discharge Instruct/Medications Diet: Cardiac 2g Na,low cholest Activity: No Restrictions, As Tolerated Follow Up/Referral: See below Medications: See below Scheduled Aspirin (Aspirin), 81 MG PO DAILY Scheduled PRN Baclofen (Baclofen), 10 MG PO TID PRN Discharge Statement: "Patient was advised to return to the ER or call 911 if any headaches, dizziness, shortness of breath, chest pain, abdominal pain, bleeding, fevers, or worsening of medical condition. Patient was counseled about treatment plan, medications, possible side effects, patientverbalized understanding. All questions were answered to the best of my ability. This discharge took greater then 30 minutes in planning, reviewing documentation, counseling the patient, and discussing with other team members." Date of Service: Apr 11, 2025 Billing Provider: RAFAEL MENDOZA MD Common Visit Codes: 44846-USI/OBS DISCH DAY >30min RAFAEL MENDOZA MD Apr 11, 2025 09:39
[2025-04-11 10:12] VITALS: BP 121/72; PULSE 70; RESP 17; TEMP 36.5; O2SAT 99
--- NOTE | 2025-04-11 12:39 | ECG ---
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
== END 2025-04-11 10:45 | disposition home or self-care (01) | DRG 206 ==
LOC: ER 08:32 → OVERFLOW 13:26 → TELE-CENTR 15:08
PROVIDERS: ADMIT Student in an Organized Health Care Education/Training Program; ATTEND Student in an Organized Health Care Education/Training Program
DX: M94.0 Chondrocostal junction syndrome [Tietze] (principal); I95.9 Hypotension, unspecified; I44.7 Left bundle-branch block, unspecified; I10 Essential (primary) hypertension; Z79.899 Other long term (current) drug therapy
CPT/HCPCS: 36415; 71045; 80053; 81001; 84484; 85025; 93005; 93306; 99291; 99292; G0378